=== PATIENT | male | born 1995 | race Two or more races ===

== ENCOUNTER 2023-04-22 09:14 | Emergency (ER) | payer MEDICAID, OTHER ==
[~2023-04-22] VITALS: Ht 175.3 cm; Wt 122.0 kg
[2023-04-22 10:18] VITALS: BP 162/108
[2023-04-22] MEDS ORDERED: DOCU-94 PO (10:44)
[2023-04-22] MEDS ORDERED: HYDR25SU21 PR (10:44)
[2023-04-22] MEDS ORDERED: IBUP-1456 PO (10:44)
[2023-04-22] MEDS ORDERED: KETOROLAC TROMETH 60MG/2ML VIAL IM ONE (10:45)
== END 2023-04-22 10:58 | disposition home or self-care (01) ==
LOC: ER 09:14
DX: K64.4 Residual hemorrhoidal skin tags (principal); Z88.6 Allergy status to analgesic agent
CPT/HCPCS: 96372; 99283; J1885

== ENCOUNTER 2023-07-29 17:08 | Emergency (ER) | payer MEDICAID ==
[~2023-07-29] VITALS: Ht 175.3 cm; Wt 126.0 kg
[~2023-07-29 17:08] MED LIST: DOCU-94 PO; HYDR25SU21 PR; IBUP-1456 PO
[2023-07-29 17:49] VITALS: BP 141/85; PULSE 105; RESP 18; TEMP 98.2; O2SAT 98
[2023-07-29] MEDS ORDERED: ONDANSETRON ODT 4 MG TAB PO ONE (18:15)
[2023-07-29] MEDS ORDERED: KETOROLAC TROMETH 60MG/2ML VIAL IM ONE (18:15)
[2023-07-29 18:41] LABS: Urine Bacteria NONE SEEN /hpf (None Seen); Urine Blood Negative /uL (Negative); Urine Clarity Clear (Clear); Urine Color Yellow (Yellow); Urine Mucus FEW (None Seen); Urine Protein, UAD TRACE (Negative); Urine Specific Gravity 1.029 (1.001-1.035); Urine Urobilinogen >12.0 mg/dL (Negative); Urine WBC 2 /hpf (0 - 3)
[2023-07-29 18:48] LABS: Basophils # (auto) 0.1 10 ^3/uL (0-0.2); Basophils % (auto) 1.1 % (0.0-2.0); Eosinophils # (auto) 0.1 10 ^3/uL (0-0.8); Eosinophils % (auto) 0.8 % (0.0-7.0); Hematocrit 43.6 % (41.0-53.0); Hemoglobin 14.7 g/dL (13.5-17.5); Lymphocytes # (auto) 3.5 10 ^3/uL (0.4-5.4); Lymphocytes % (auto) 26.6 % (10.0-50.0); Mean Corpuscular Hemoglobin 29.5 pg (28.0-32.0); Mean Corpuscular Hgb Conc. 33.7 g/dL (32.0-36.0); Mean Corpuscular Volume 87.5 fL (80.0-100.0); Monocytes # (auto) 0.8 10 ^3/uL (0-1.3); Monocytes % (auto) 5.9 % (0.0-12.0); Neutrophils # (auto) 8.8 10 ^3/uL (1.6-8.6); Neutrophils % (auto) 65.6 % (37.0-80.0); Red Blood Cells 4.98 10^6/uL (4.5-5.90); Red Cell Distribution Width 13.3 % (11.8-14.3); White Blood Cell 13.4 10^3/uL (4.4-10.8)
[2023-07-29 19:10] LABS: Alanine Aminotransferase 40 U/L (7-40); Alkaline Phosphatase 76 U/L (46-116); Anion Gap 6 (5-15); Aspartate Aminotransferase 23 U/L (13-40); BUN/Creatinine Ratio 11.3 (10.0-20.0); Blood Urea Nitrogen 11 mg/dL (9-23); Calcium 9.4 mg/dL (8.7-10.4); Carbon Dioxide 27 mmol/L (20-30); Chloride 104 mmol/L (98-107); Glucose 100 mg/dL (74-106); Lipase 45 U/L (12-53); Potassium 3.9 mmol/L (3.5-5.1); Sodium 137 mmol/L (136-145)
[2023-07-29 19:11] LABS: Total Protein 7.9 g/dL (5.7-8.2)
[2023-07-29] MEDS ORDERED: AMOXICILLIN/CLAVUL 875 MG TAB PO ONE (20:30)
[2023-07-29] MEDS ORDERED: HYDR-4902 PO (20:37)
[2023-07-29] MEDS ORDERED: ZOFR4T PO (20:37)
[2023-07-29] MEDS ORDERED: AMOX875T4 PO (20:37)
[2023-07-29] MEDS ORDERED: IBUP-1455 PO (20:37)
[2023-07-29] MEDS ORDERED: TRAM50TA2 PO (20:38)
== END 2023-07-29 20:53 | disposition home or self-care (01) ==
LOC: ER 17:08
DX: K57.32 Diverticulitis of large intestine without perforation or abscess without bleeding (principal); Z79.1 Long term (current) use of non-steroidal anti-inflammatories (NSAID); Z79.899 Other long term (current) drug therapy
CPT/HCPCS: 36415; 74176; 80053; 81001; 83690; 85025; 96372; 99285; J1885; Q0162